=== PATIENT | female | born 1970 | race Two or more races ===

== ENCOUNTER → 2020-12-25 08:00 | Outpatient (CLI) | payer OTHER ==
[~2020-12-25] VITALS: Ht 157.5 cm; Wt 92.5 kg
== END | disposition home or self-care (01) ==
LOC: LAB 08:00 → SURH 12-30 07:00 → EDSTATUS 12-30 09:00 → SURH 12-30 09:00
PROVIDERS: ATTEND Orthopaedic Surgery Orthopaedic Surgery of the Spine
DX: M50.022 Cervical disc disorder at C5-C6 level with myelopathy (principal); Z03.818 Encounter for observation for suspected exposure to other biological agents ruled out; Z20.828 Contact with and (suspected) exposure to other viral communicable diseases; D68.8 Other specified coagulation defects; D64.89 Other specified anemias; E03.8 Other specified hypothyroidism

== ENCOUNTER 2021-06-19 09:00 | Inpatient (IN) | payer OTHER ==
[~2021-06-19] VITALS: Ht 157.5 cm; Wt 93.4 kg
[2021-06-19] MEDS ORDERED: PERCOC PO (13:32)
[2021-06-24] MEDS ORDERED: DICLOFENAC SOD100 GM (13:50)
[2021-06-24] MEDS ORDERED: OXYC1TAB9 (13:50)
[2021-06-24] MEDS ORDERED: COLACE100 MG PO (14:20)
[2021-06-24] MEDS ORDERED: MEDROLPACK PO (14:21)
[2021-06-24] MEDS ORDERED: PERCOCET 5-3251 EACH PO (14:21)
== END 2021-06-25 13:51 | disposition home or self-care (01) | DRG 473 ==
LOC: SURG 06-23 09:00 → O/R 06-24 06:00 → SURG 06-24 09:00 → PED 06-24 17:20 → SURG 06-24 17:30 → PED 06-25 13:51
PROVIDERS: ADMIT Orthopaedic Surgery Orthopaedic Surgery of the Spine; ATTEND Orthopaedic Surgery Orthopaedic Surgery of the Spine
PROC: 0RT30ZZ Resection of Cervical Vertebral Disc, Open Approach (ICD-10-PCS; 2021-06-24)
PROC: 07DS3ZZ Extraction of Vertebral Bone Marrow, Percutaneous Approach (ICD-10-PCS; 2021-06-24)
PROC: 0RG10A0 Fusion of Cervical Vertebral Joint with Interbody Fusion Device, Anterior Approach, Anterior Column, Open Approach (ICD-10-PCS; principal; 2021-06-24 17:30)
DX: M50.022 Cervical disc disorder at C5-C6 level with myelopathy (principal); M48.02 Spinal stenosis, cervical region; Z20.822 Contact with and (suspected) exposure to COVID-19